=== PATIENT | male | born 1970 ===

== ENCOUNTER 2024-03-28 18:06 | Emergency (ER) | payer SELFPAY ==
[2024-03-28 18:36] VITALS: BP 137/86; PULSE 76; RESP 18; TEMP 36.7; O2SAT 96; BMI 35.4
[2024-03-28 18:49] LABS: MANUAL DIFF FLAG NO
[2024-03-28 18:50] LABS: Basophils Percent Auto 0.2 % (0-2); Eosinophils Absolute Auto 0.1 X10*3/uL (0.0-0.4); Eosinophils Percent Auto 1.1 % (0-4); Hematocrit 41.5 % (42.0-52.0); Hemoglobin 14.9 g/dl (14.0-18.0); Imm Gran Abs Auto 0.03 X10*3/uL (0.00-0.03); Imm Gran Pct Auto 0.3 % (0.0-0.4); Lymphocytes Absolute Auto 2.8 X10*3/uL (1.2-4.9); Lymphocytes Percent Auto 31.9 % (20-40); Mean Corpuscular HGB Conc 35.9 g/dl (31.0-36.0); Mean Corpuscular Hemoglobin 30.7 pg (27.0-33.0); Mean Corpuscular Volume 85.4 fL (80.0-98.0); Mean Platelet Volume 10.4 fL (9.4-12.4); Monocytes Absolute Auto 0.6 X10*3/uL (0.1-1.2); Monocytes Percent Auto 6.4 % (2-11); Neutrophils Absolute Auto 5.3 x10*3/uL (2.0-8.3); Neutrophils Percent Auto 60.1 % (45-73); Platelet Count 270 X10*3/uL (160-400); Red Blood Count 4.86 X10*6/uL (4.60-5.80); Red Cell Distribution Width 11.6 % (11.0-16.0); White Blood Count 8.8 X10*3/uL (4.8-10.8)
[2024-03-28 19:15] LABS: Alanine Aminotransferase 41 U/L (0-40); Albumin Level 4.1 g/dL (3.5-5.0); Alkaline Phosphatase 193 U/L (39-117); Anion Gap 14 (12-20); Aspartate Amino Transferase 18 U/L (5-37); Bilirubin Total 0.5 mg/dL (0.0-1.0); Blood Urea Nitrogen 16 mg/dL (9-16); Calcium 9.4 mg/dL (8.4-10.2); Carbon Dioxide 23 mmol/L (22-29); Chloride 95 mmol/L (96-108); Creatinine Clr Calc Pharmacy 68.4; Estimated Glomerular Filt Rate 52; Glucose Random 791 mg/dL (60-115); Potassium 4.7 mmol/L (3.3-5.1); Sodium 127 mmol/L (135-145); Total Protein 7.5 g/dL (6.5-8.0)
[2024-03-28] MEDS: 0.9 % Sodium Chloride 1,000 ML 999 ML IV ×3 (19:49→21:45)
[2024-03-28 19:51] VITALS: BP 137/87; PULSE 71; RESP 18; TEMP 36.8; O2SAT 96
[2024-03-28 20:08] VITALS: BP 147/81; PULSE 76; RESP 18; TEMP 36.7; O2SAT 96
[2024-03-28 21:49] LABS: Glucose, Whole Blood 537 mg/dL (60-115)
[2024-03-28] MEDS: metFORMIN HCl 500 MG TABLET PO (22:26)
[2024-03-28 22:31] VITALS: BP 144/88; PULSE 74; RESP 18; TEMP 36.7; O2SAT 99
--- NOTE | 2024-03-28 23:17 | MHC.EDTECH ---
POC taken 383 result. MARLENE العراقي and AMNAP Jeanine aware
[2024-03-28 23:21] LABS: Glucose, Whole Blood 383 mg/dL (60-115)
--- NOTE | 2024-03-28 23:31 | ED_ITS ---
HPI - Recheck/Abnormal Lab/Rx General Chief Complaint: Recheck/Abnormal Lab/Rx Stated Complaint: HBS sent from Time Seen by Provider: 03/28/24 19:36 Source: patient Limitations: no limitations History of Present Illness ED Provider: Beatris Orlando PA-C HPI narrative: 54-year-old morbidly obese male with no known underlying medical conditions presents with abnormal lab studies. Patient was seen at an urgent care secondary to polyuria and polydipsia over the past 2 weeks. Associated unintentional weight loss. Patient was found to be hyperglycemic. Patient denies nausea, vomiting. Related Data Previous Rx's ?Medication ?Instructions ?Recorded metformin 500 mg tablet 500 mg PO BID #60 tabs 03/28/24 Allergies Allergy/AdvReac Type Severity Reaction Status Date / Time No Known Allergies Allergy Verified 03/28/24 18:37 [No Known Allergies*] Review of Systems 2 Review of Systems: Yes all other systems are reviewed and are negative Constitutional: Constitutional: Denies fatigue, Denies fever(s) and Reports weight loss Cardiovascular: Cardiovascular: Denies chest pain and Denies dyspnea Respiratory: Respiratory: Denies dyspnea Gastrointestinal: Gastrointestinal: Denies abdominal pain, Denies nausea and Denies vomiting Genitourinary: Genitourinary: Reports other (Polyuria polydipsia) Endocrine: Endocrine: Denies fatigue PMFSH Past Medical History Attestation statement: The following information was validated with the patient. Social History Social History Advance Directives: No Advance Directives Information Provided: No Do you have a plan to hurt others: No Plan Physical Exam 2 Vital Signs: Vital Signs: Last Vital Signs Temp 98.0 F 03/28/24 22:31 Pulse 74 03/28/24 22:31 Resp 18 03/28/24 22:31 BP 144/88 H 03/28/24 22:31 Pulse Ox 99 03/28/24 22:31 O2 Del Method Room Air 03/28/24 22:31 BMI result Body Mass Index 35.4 Const: Other: Alert, well in appearance Orientation/consciousness: patient oriented x3 HEENT: Other: Dry oral mucosa Resp: Other: Nonlabored respiration Cardio: Other: Normal peripheral perfusion Skin: Other: Warm dry no rash Neuro: General: patient oriented x3, no focal motor deficits and CN's II-XI intact bilaterally Psych: Other: Calm cooperative Medications Administered Discontinued Medications Generic Name Dose Route Start Last Admin Trade Name Jerrod PRN Reason Stop Dose Admin Sodium Chloride 1,000 mls @ 999 mls/hr 03/28/24 19:45 03/28/24 21:39 Ns IV 03/28/24 20:45 Infused .Q1H1M ALEJO Infusion Sodium Chloride 1,000 mls @ 999 mls/hr 03/28/24 19:45 03/28/24 21:39 Ns IV 03/28/24 20:45 Infused .Q1H1M ALEJO Infusion Sodium Chloride 1,000 mls @ 999 mls/hr 03/28/24 21:45 03/28/24 23:11 Ns IV 03/28/24 22:45 Infused .Q1H1M ALEJO Infusion Metformin HCl 500 mg 03/28/24 21:44 03/28/24 22:26 Metformin Hcl 500 Mg Tablet PO 03/28/24 21:45 500 mg ONCE ONE Administration Medical Decision Making Medical Decision Making MDM Narrative: 54-year-old morbidly obese male with no known underlying medical conditions presents with abnormal lab studies. Patient was seen at an urgent care secondary to polyuria and polydipsia over the past 2 weeks. Associated unintentional weight loss. Patient was found to be hyperglycemic. Patient denies nausea, vomiting. Problem: Obesity History: Per patient I have considered the following differential diagnoses: Hyperglycemia, HHS, DKA, new onset diabetes type 2, metabolic syndrome Plan: Patient is likely a new type 2 diabetic. Screening labs were obtained, He is not in DKA, there was no gap, we will give aggressive IV fluid management, recheck POC, likely send I metformin. He does not meet criteria for admission. I have independently reviewed the following tests: Labs: No leukocytosis, not anemic, creatinine 1.44, just at the upper limit of normal, 1st blood sugar 791, repeat after 2 L of fluid 537, after an additional Liter and metformin, 383 Lab Data 03/28/24 18:45 03/28/24 18:45 Labs: Lab Results 03/28/24 03/28/24 03/28/24 Range/Units 18:45 21:43 23:16 WBC 8.8 (4.8-10.8) X10*3/uL RBC 4.86 (4.60-5.80) X10*6/uL Hgb 14.9 (14.0-18.0) g/dl Hct 41.5 L (42.0-52.0) % MCV 85.4 (80.0-98.0) fL MCH 30.7 (27.0-33.0) pg MCHC 35.9 (31.0-36.0) g/dl RDW 11.6 (11.0-16.0) % Plt Count 270 (160-400) X10*3/uL MPV 10.4 (9.4-12.4) fL Immature Gran % (Auto) 0.3 (0.0-0.4) % Neut % (Auto) 60.1 (45-73) % Lymph % (Auto) 31.9 (20-40) % [place] % (Auto) 6.4 (2-11) % Eos % (Auto) 1.1 (0-4) % Baso % (Auto) 0.2 (0-2) % Lymph # (Auto) 2.8 (1.2-4.9) X10*3/uL [place] # (Auto) 0.6 (0.1-1.2) X10*3/uL Eos # (Auto) 0.1 (0.0-0.4) X10*3/uL Baso # (Auto) 0.0 (0.0-0.2) X10*3/uL Abs Immat Gran (auto) 0.03 (0.00-0.03) X10*3/uL Absolute Neuts (auto) 5.3 (2.0-8.3) x10*3/uL Absolute Nucleated RBC 0.000 (0.0-0.012) X10*3/uL Nucleated RBC % (auto) 0.0 (0.0-0.2) /100WBC Sodium 127 L (135-145) mmol/L Potassium 4.7 (3.3-5.1) mmol/L Chloride 95 L (96-108) mmol/L Carbon Dioxide 23 (22-29) mmol/L Anion Gap 14 (12-20) BUN 16 (9-16) mg/dL Creatinine 1.44 H (0.5-1.4) mg/dL Estim Creat Clear Calc 68.4 Estimated GFR 52 POC Glucose 537 H* 383 H* (60-115) mg/dL Random Glucose 791 H* (60-115) mg/dL Calcium 9.4 (8.4-10.2) mg/dL Total Bilirubin 0.5 (0.0-1.0) mg/dL AST 18 (5-37) U/L ALT 41 H (0-40) U/L Alkaline Phosphatase 193 H (39-117) U/L Total Protein 7.5 (6.5-8.0) g/dL Albumin 4.1 (3.5-5.0) g/dL Discharge Plan Discharge Clinical Impression: Diabetes mellitus Patient Disposition: Home, Self-Care Instructions: Diabetes and Exercise (ED), Diabetes and Nutrition (ED), Type 2 Diabetes in Adults: New Diagnosis (ED) Additional Instructions: It appears that you have developed diabetes, it is likely type 2 diabetes. See home care instructions. See instructions on dietary changes and lifestyle modification. Take the metformin as directed, you need to reach out to your primary care provider tomorrow to make a follow up appointment. You require further testing as an outpatient, and likely medication adjustment. Prescriptions: New metformin 500 mg tablet 500 mg PO BID Qty: 60 0RF Print Language: Upper Sorbian
[2024-03-29 00:04] VITALS: BP 150/88; PULSE 71; RESP 12; TEMP 36.8; O2SAT 98
[2024-03-29 00:21] VITALS: BP 150/88; PULSE 71; RESP 12; TEMP 36.8; O2SAT 98
--- OUTSIDE RECORDS SUMMARY | 2024-03-31 13:42 | XMS_ITS | Continuity of Care Document ---
Author Organization [facility] Address [address] [place] [id number]- Care Team Providers Care Commodities Manager Name Role Phone Wesly Fontenot MD Primary Care Physician ( [phone] [place] [facility] [place] - 03/01/[address] [address]- Encounter Diagnosis Chest wall discomfort, shortness of breath(Final) - 03/01/23 Discharge Disposition: A-D/C Home Attending Physician: Adolph Hartley MD Admitting Physician: Adolph Hartley MD Referring Physician: Not on Staff, Referring MD Allergies, Adverse Reactions, Alerts No Known Allergies Medications famotidine 20 mg oral tablet 20 mg, 1, tablet, By Mouth, 2 times a day, # 28 tablet, Refills 0, Tot. Refills 0, Maintenance, 03/01/23 8:00:00 EDT, Route to Pharmacy Electronically, [id number], Partial fill upon patient request if the prescription is for a schedul... Start Date: 03/01/23 Stop Date: 03/15/23 Status: Ordered Zofran ODT 4 mg oral tablet, disintegrating 1 tablet = 4 mg, By Mouth, Every 8 hours, PRN as needed for nausea/vomiting, # 10 tablet, 0 Refills, Maintenance, DIS Tablet Start Date: 06/24/10 Status: Ordered Results Radiology Reports * Exam Date Time Procedure Performing Provider Status 02/28/23 9:57 PM Chest 2 Views Frontal and Lat Lindy Quintero (Verified) Notes: (Chest 2 Views Frontal and Lat) Reason For Exam: Chest Pain;Other: RESULT: Chest 2 Views Frontal and Lat Chest 2 Views Frontal and Lat Hx of Present Illness: Intermittent midsternal chest pain since September. COMPARISON: 10/07/2015. FINDINGS: LUNGS AND PLEURA: Clear lungs. Normal pulmonary vascularity. No pleural effusion. No pneumothorax. HEART, MEDIASTINUM AND JAEL: Heart is normal in size. Normal mediastinal and hilar contour. BONES AND SOFT TISSUES: No acute abnormality. IMPRESSION: No acute abnormality. WSN: [id number] Ordering Physician: Andrews Ahmadi Dictated By: Audie Lentz MD Dictated Date/Time: 02/28/23 10:00 p Reviewed By: Audie Lentz MD Signed By: Audie Lentz MD Signed Date/Time: 02/28/23 10:00 pm Transcribed By: HANY Transcribed Date/Time: 02/28/23 9:58 pm Vital Signs Most recent to oldest [Reference Range]: 1 2 3 Height 170 cm (02/28/23 9:01 PM) 170 cm (02/28/23 8:56 PM) Oxygen Saturation [94-100 %] 99 % (03/01/23 6:48 AM) 96 % (03/01/23 4:50 AM) 95 % (03/01/23 2:15 AM) Pulse Rate [55-90 bpm] 68 bpm (03/01/23 6:48 AM) 81 bpm (03/01/23 4:50 AM) 77 bpm (03/01/23 2:15 AM) Blood Pressure [90-138/55-84 mm Hg] 147/83mm Hg *H* (03/01/23 6:48 AM) 156/90mm Hg *H* (03/01/23 4:50 AM) 146/100mm Hg *H* (03/01/23 2:15 AM) Respiratory Rate [16-30 br/min] 18 br/min (03/01/23 4:50 AM) 18 br/min (02/28/23 11:44 PM) 18 br/min (02/28/23 8:56 PM) Temperature [96.8-100.4 DegF] 98.6 DegF (03/01/23 6:48 AM) 98.1 DegF (03/01/23 4:50 AM) 97.9 DegF (03/01/23 2:15 AM) Mode of Delivery (Oxygen) Room air (03/01/23 6:48 AM) Room air (03/01/23 4:50 AM) Room air (03/01/23 2:15 AM) Blood pressure sites Arm, left (03/01/23 6:48 AM) Arm, left (03/01/23 4:50 AM) Arm, right (03/01/23 2:15 AM) Temperature Route Oral (03/01/23 6:48 AM) Oral (03/01/23 4:50 AM) Oral (03/01/23 2:15 AM) Dry Weight 105.5 kg (02/28/23 9:01 PM) 105.5 kg (02/28/23 8:56 PM) EKG study * Event Display: ECG 12-Lead Authored Date: Please click on pdf link to open report * Event Display: ECG 12-Lead Authored Date: Ventricular Rate: 74 BPM Atrial Rate: 74 BPM P-R Interval: 126 ms QRS Duration: 84 ms Q-T Interval: 378 ms QTC Calculation(Bazett): 419 ms P [place]: 5 degrees R [place]: 29 degrees T [place]: 4 degrees Normal sinus rhythm Normal ECG No previous ECGs available Confirmed by ECHO KEITH MD ([id number]) on 03/01/2023 11:57:54 AM [place]: ECHO KEITH MD Patient Care team information Care Team Personnel Name: Wesly Fontenot MD Position: [facility] Outreach Member Role: PCP Address: Address: [address] [place] [address] Name: Adolph Hartley MD Position: [facility] ED Medicine MD Member Role: Admitting Physician Address: Address: [address] [place] [address] Name: Madeline Heck RN Position: [facility] ED RN W/OE and Tasks Name: Hayder Che Position: [facility] Associate Professional Member Role: ED Physician Aviation Project Engineer Address: Address: [address] [place] [address] Care Team Related Persons Name: JAIME UGNTER Address: home [address] [place] [address]
== END 2024-03-29 00:21 | disposition home or self-care (01) ==
PROVIDERS: Emergency Provider Emergency Medicine Emergency Medical Services; PCP Internal Medicine
DX: E11.9 Type 2 diabetes mellitus without complications (principal); R35.89 Other polyuria; R63.1 Polydipsia; E66.9 Obesity, unspecified; Z68.35 Body mass index [BMI] 35.0-35.9, adult
CPT/HCPCS: 36415; 80053; 82947; 85025; 96360; 96361; 99284